=== PATIENT | female | born 1960 | race Caucasian/White ===

== ENCOUNTER 2017-12-01 09:10 | Emergency (ER) | payer BC, OTHER ==
[2017-12-01 09:29] VITALS: PULSE 86; O2SAT 97
[2017-12-01] MEDS ORDERED: TORAdol 30 mg Injection IM ONE (09:31)
[2017-12-01] MEDS ORDERED: TORAdol 30 mg Injection ONE (09:40)
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
[2017-12-01 10:43] VITALS: BP 123/79
== END 2017-12-01 10:47 | disposition home or self-care (01) ==
LOC: ED 09:10
DX: S40.012A Contusion of left shoulder, initial encounter (principal); M25.561 Pain in right knee; V89.2XXA Person injured in unspecified motor-vehicle accident, traffic, initial encounter
CPT/HCPCS: 71046; 73030; 96372; 99283; 99284; J1885